=== PATIENT | male | born 1950 | race Caucasian/White ===

== ENCOUNTER 2021-02-21 13:39 | Outpatient (REF) | payer MEDICARE, SELFPAY ==
--- NOTE | ~2021-02-21 | CT_ITS ---
EXAMINATION: CT CHEST SCREENING CLINICAL INFORMATION: Lung cancer screening COMPARISON: Previous chest CT scans most recent November 2019 TECHNIQUE: Multidetector volumetric CT imaging of the chest is performed without contrast using low dose technique. Additional 2D coronal and sagittal reformatted images and axial 3D maximum intensity projection (MIP) images are generated on the CT workstation. This CT examination was performed using dose optimization techniques as appropriate, variously including the following: *Automated exposure control *Adjustment of mA and/or kV according to patient size (this includes techniques or standardized protocols for targeted exams where dose is matched to indication/reason for exam; i.e. extremities or head) *Use of iterative reconstruction technique DLP: 353 mGy-cm FINDINGS: LUNGS: The small calcified and noncalcified pulmonary nodules are stable. Largest noncalcified pulmonary nodule measures 2 x 4 mm in the peripheral or subpleural left upper lobe axial image 212 series 5. There are increased peripheral or subpleural interstitial reticular markings at the lung bases. No endobronchial or endotracheal lesion is seen. MEDIASTINUM: There is coronary artery calcification. There is aortic valve calcification. The mediastinum is normal. PLEURA: There is no pleural effusion. No pleural mass or thickening. AXILLA: No lymphadenopathy. UPPER ABDOMEN: Unremarkable OSSEOUS STRUCTURES: There are degenerative changes of the spine. CT/CT lung screening IMPRESSION: Stable pulmonary nodules. Coronary artery and aortic valve calcification. ASSESSMENT: Lung-RADS category 2: Benign RECOMMENDATION: Annual low-dose chest CT follow-up recommended.
== END 2021-02-21 13:40 | disposition home or self-care (01) ==
LOC: HO.CT 13:39
PROVIDERS: Visit Provider Physician Assistant Medical
DX: Z12.2 Encounter for screening for malignant neoplasm of respiratory organs (principal); F17.210 Nicotine dependence, cigarettes, uncomplicated
CPT/HCPCS: 71271

== ENCOUNTER 2022-05-03 09:51 | Outpatient (REF) | payer MEDICARE, SELFPAY ==
--- NOTE | ~2022-05-03 | CT_ITS ---
EXAMINATION: CT CHEST SCREENING CLINICAL INFORMATION: Nicotine dependence COMPARISON: CT lung screening 02/21/2021 TECHNIQUE: Multidetector volumetric CT imaging of the chest is performed without contrast using low dose technique. Additional 2D coronal and sagittal reformatted images and axial 3D maximum intensity projection (MIP) images are generated on the CT workstation. This CT examination was performed using dose optimization techniques as appropriate, variously including the following: *Automated exposure control *Adjustment of mA and/or kV according to patient size (this includes techniques or standardized protocols for targeted exams where dose is matched to indication/reason for exam; i.e. extremities or head) *Use of iterative reconstruction technique DLP: 94 mGy-cm FINDINGS: LUNGS: There is a 5 mm subpleural nodule left upper lobe anterior segment image 172/5, punctate tumor nodule right lower lobe peripherally based image 260/5. There are punctate scattered calcified nodules which are stable as well. No consolidation, mass or groundglass nodule seen. MEDIASTINUM: The thyroid lobes are symmetric and normal. The central trachea and the bronchi widely patent. Heart size and the great vessels are normal caliber. No abnormal size mediastinal or hilar lymph nodes seen. There are coronary artery and aortic valve atherosclerotic calcification. There is no pericardial effusion. PLEURA: There is no pleural effusion. No pleural mass or thickening. AXILLA: No lymphadenopathy. UPPER ABDOMEN: Visualized liver, spleen, pancreas, gallbladder and adrenal glands unremarkable. No lytic or sclerotic process seen. OSSEOUS STRUCTURES: There is moderate spondylosis upper and mid dorsal spine. No lytic process. CT/CT lung screening IMPRESSION: Stable calcified and noncalcified nodules. No change from the last CT chest exam. ASSESSMENT: Lung-RADS category 2: Benign RECOMMENDATION: Low-dose annual CT chest exam.
== END 2022-05-03 09:52 | disposition home or self-care (01) ==
LOC: HO.CT 09:51
PROVIDERS: PCP Family Medicine; Visit Provider Physician Assistant Medical
DX: Z12.2 Encounter for screening for malignant neoplasm of respiratory organs (principal); F17.210 Nicotine dependence, cigarettes, uncomplicated
CPT/HCPCS: 71271

== ENCOUNTER 2023-05-07 08:36 | Outpatient (REF) | payer MEDICARE, SELFPAY ==
--- NOTE | ~2023-05-07 | CT_ITS ---
EXAMINATION: LUNG CANCER SCREENING CT CHEST WITHOUT CONTRAST CLINICAL INFORMATION: Former smoker with 40 pack year history, quit 2 years ago. COMPARISON: 05/03/2022 TECHNIQUE: Multidetector volumetric CT imaging of the chest was obtained noncontrast using low dose screening CT technique. Axial thin section 0.625 mm reformations in soft tissue and lung windows were obtained. Sagittal and coronal reformations were obtained. Axial MIP images were also created and reviewed. This CT examination was performed using dose optimization techniques as appropriate, variously including the following: *Automated exposure control *Adjustment of mA and/or kV according to patient size (this includes techniques or standardized protocols for targeted exams where dose is matched to indication/reason for exam; i.e. extremities or head) *Use of iterative reconstruction technique TOTAL EXAM DLP: 101.62 mGy-cm FINDINGS: PULMONARY NODULES (see nunez images): No suspicious pulmonary nodules. Unchanged 5 mm subpleural nodule in the anterior segment left upper lobe and 3 mm nodule right lower lobe. There are a few punctate calcified granulomata. LUNGS / PLEURA: Minimal emphysema. Diffuse mild bronchial wall thickening without bronchiectasis. No pleural effusion or pneumothorax. MEDIASTINUM / NIMO: Heart normal in size without pericardial effusion. Great vessels normal caliber. No lymphadenopathy. Coronary calcifications present. Imaged thyroid gland unremarkable. CHEST WALL / AXILLA: Unremarkable. UPPER ABDOMEN: Included portions grossly unremarkable allowing for limitations in technique. OSSEOUS STRUCTURES: No acute or suspicious osseous abnormalities. CT/CT lung screening IMPRESSION: * No evidence of pulmonary malignancy. * Minimal emphysema and chronic airways disease. ASSESSMENT: Lung RADS category: 2. Benign appearance or behavior. Nodules with a very low likelihood of becoming a clinically active cancer due to size or lack of growth. Continue annual screening with low-dose CT in 12 months. Probability of malignancy less than 1%. RECOMMENDATION: Follow up low dose CT chest in 1 year.
== END 2023-05-07 08:37 | disposition home or self-care (01) ==
LOC: HO.CT 08:36
PROVIDERS: PCP Family Medicine; Visit Provider Physician Assistant Medical
DX: Z12.2 Encounter for screening for malignant neoplasm of respiratory organs (principal); F17.210 Nicotine dependence, cigarettes, uncomplicated
CPT/HCPCS: 71271

== ENCOUNTER 2023-08-28 08:08 | Day surgery (SDC) | payer MEDICARE, SELFPAY ==
--- NOTE | 2023-08-24 11:16 | HO.ANESPROP2 ---
Documented by User: Yamileth Cruz NP 08/24/23 11:17 HPI - Anesthesia Eval Consult details Narrative: 73yo M for Colonoscopy [facility] Past Medical History Medical History (Updated 08/28/23 @ 08:46 by Keren Potts RN) Hx of dizziness Hx: UTI (urinary tract infection) Hx of hyperglycemia Pilonidal cyst BPH (benign prostatic hyperplasia) Abnormal colonoscopy Abdominal aortic aneurysm ANALISA on CPAP Depression HTN (hypertension) Hyperlipidemia Diabetes Surgical History Surgical History (Updated 08/28/23 @ 08:42 by Keren Potts RN) Hx of colonoscopy History of abdominal aortic aneurysm (AAA) repair Social History Social History Patient Tobacco Use Status: Former Tobacco user Are you DNR?: No Advance Directives: No Advance Directives Information Provided: Yes Meds Allergies Allergy/AdvReac Type Severity Reaction Status Date / Time No Known Allergies Allergy Unverified 08/05/20 16:18 Home Medications Medication Instructions Recorded Confirmed Last Taken Type ezetimibe 10 mg tablet 10 mg PO DAILY 08/24/23 Unknown History folic acid 1 mg tablet 1 mg PO DAILY 08/24/23 Unknown History glipizide 2.5 mg tablet, extended 10 mg PO DAILY 08/24/23 Unknown History release 24 hr lisinopril 10 mg tablet 10 mg PO DAILY 08/24/23 Unknown History metformin 500 mg tablet,extended 1,000 mg PO BID 08/24/23 Unknown History release 24 hr metoprolol succinate 25 mg 25 mg PO DAILY 08/24/23 Unknown History tablet,extended release 24 hr nitroglycerin 0.4 mg sublingual sublingual 08/24/23 Unknown History tablet pravastatin 40 mg tablet 40 mg PO DAILY 08/24/23 Unknown History sertraline 50 mg tablet 50 mg PO DAILY 08/24/23 Unknown History Aspir-81 81 mg PO DAILY 08/28/23 08/28/23 08/20/23 History Exam Exam Date and Time: August 24, 2023 111 Assessment and Plan Assessment Anesthesia Assessment: Chart Reviewed Documented by User: Aneudydeepa Gardner MD 08/28/23 09:53 [facility] Past Medical History Medical History (Updated 08/28/23 @ 08:46 by Keren Potts, RN) Hx of dizziness Hx: UTI (urinary tract infection) Hx of hyperglycemia Pilonidal cyst BPH (benign prostatic hyperplasia) Abnormal colonoscopy Abdominal aortic aneurysm ANALISA on CPAP Depression HTN (hypertension) Hyperlipidemia Diabetes Family History Family history of problems with anesthesia: No Surgical History Surgical History (Updated 08/28/23 @ 08:42 by Keren Potts, RN) Hx of colonoscopy History of abdominal aortic aneurysm (AAA) repair History of Problems with Anesthesia: No Social History Social History Patient Tobacco Use Status: Former Tobacco user Are you DNR?: No Advance Directives: No Advance Directives Information Provided: Yes Meds Allergies Allergy/AdvReac Type Severity Reaction Status Date / Time No Known Allergies Allergy Unverified 08/05/20 16:18 Home Medications Medication Instructions Recorded Confirmed Last Taken Type ezetimibe 10 mg tablet 10 mg PO DAILY 08/24/23 Unknown History folic acid 1 mg tablet 1 mg PO DAILY 08/24/23 Unknown History glipizide 2.5 mg tablet, extended 10 mg PO DAILY 08/24/23 Unknown History release 24 hr lisinopril 10 mg tablet 10 mg PO DAILY 08/24/23 Unknown History metformin 500 mg tablet,extended 1,000 mg PO BID 08/24/23 Unknown History release 24 hr metoprolol succinate 25 mg 25 mg PO DAILY 08/24/23 Unknown History tablet,extended release 24 hr nitroglycerin 0.4 mg sublingual sublingual 08/24/23 Unknown History tablet pravastatin 40 mg tablet 40 mg PO DAILY 08/24/23 Unknown History sertraline 50 mg tablet 50 mg PO DAILY 08/24/23 Unknown History Aspir-81 81 mg PO DAILY 08/28/23 08/28/23 08/20/23 History Exam Airway Mallampati Class: III TM Dist: >3cm Neck ROM: Full Loose/Missing/Broken Teeth: Yes Assessment and Plan Assessment Anesthesia Assessment: Anesthesia Plan Discussed Final Anesthetic Review Family History of Problems with Anesthesia: No History of Problems with Anesthesia: No ASA Class: III Final Preanesthetic Review: No Changes in Pt Med Stat, Meds/Allgs Chart Reviewed, Consent Obtained/Reviewed and Anes Risks/Benef Reviewed Patient Risk: Intermediate Procedure Risk: Low Anesthetic Plan Disposition: Standard PACU
[2023-08-28 08:17] VITALS: BP 142/58; PULSE 76; RESP 18; TEMP 36; O2SAT 95
[2023-08-28 08:33] VITALS: BMI 33.7
--- NOTE | 2023-08-28 09:47 | MHC.SHP ---
Pre-Procedural Eval Section A Date of Service: 08/28/23 Section B Chief Complaint: screening Details of Present Illness: see H&P no changes Relevant Family History (Specify if Yes): No Relevant Social History: None Present Medications: see Short Stay Collaborative assessment Medical History: No relevant PMH History of Previous Operations: No relevant previous surgery Allergies: Allergies Allergy/AdvReac Type Severity Reaction Status Date / Time No Known Allergies Allergy Unverified 08/05/20 16:18 Review of Systems Sugical H&P ROS: Negative: Constitution, Cardiovascular, Respiratory, Neurological, Psychiatric, Hem-Onc, Allergic/Immunologic, Gastrointestinal, Genitourinary, Musculoskeletal, Integumentary, Endocrine and Eyes/Ears/Nose/Throat Exam Surgical H&P Exam: Normal: HEENT, Normal: Heart, Normal: Lungs, Normal: Extremities, Normal: Abdomen, Normal: Skin and Normal: Neurological Plan Diagnosis/Plan: Unchanged I have reviewed the history and physical and performed a pertinent physical examination on my patient. No changes have occurred unless specified. Time Spent With Patient Time: Total time managing care of this patient today ____ minutes.
--- NOTE | 2023-08-28 10:14 | PM.OP ---
Brief Operative Note Date of Service: 08/28/23 Surgeon: Roc Barboza MD Anesthesia: MAC Was an Food And Beverage Checker used for this Procedure?: No Estimated blood loss (mL): 2 Pathology: other Condition: stable Disposition: PACU
[2023-08-28 10:20] VITALS: BP 115/60; PULSE 75; RESP 20; TEMP 36.3; O2SAT 96
[2023-08-28 10:35] VITALS: BP 123/74; PULSE 64; RESP 20; TEMP 36.2; O2SAT 97
== END 2023-08-28 11:12 | disposition home or self-care (01) ==
PROVIDERS: PCP Family Medicine; Visit Provider Internal Medicine Gastroenterology
PROC: 0DJD8ZZ Inspection of Lower Intestinal Tract, Via Natural or Artificial Opening Endoscopic (ICD-10-PCS; CPT 45378; principal; 2023-08-28 09:30)
DX: Z12.11 Encounter for screening for malignant neoplasm of colon (principal); Z86.010 Personal history of colon polyps; K63.5 Polyp of colon; K59.01 Slow transit constipation; I10 Essential (primary) hypertension; E78.5 Hyperlipidemia, unspecified; E11.9 Type 2 diabetes mellitus without complications; G47.33 Obstructive sleep apnea (adult) (pediatric); I71.40 Abdominal aortic aneurysm, without rupture, unspecified; Z79.84 Long term (current) use of oral hypoglycemic drugs; Z79.899 Other long term (current) drug therapy; Z99.89 Dependence on other enabling machines and devices; Z98.890 Other specified postprocedural states
CPT/HCPCS: 45380; 82947; 88305

== ENCOUNTER 2024-11-13 13:02 | Outpatient (REF) | payer MEDICARE, SELFPAY ==
--- OUTSIDE RECORDS SUMMARY | 2024-11-13 13:04 | XMS_ITS ---
Author Organization [facility] Address [address] [place] [phone] Care Team Providers Care Gericare Aide Teacher Name Role Phone Reji Hernandez MD Primary Care Provider Roc Chacon Jr Unavailable ALLERGIES No Known Allergies REASON FOR VISIT Patient presents today for colonoscopy screening recall. MEDICATIONS Medication SIG (Take, Route, Frequency, Duration) Notes Start Date End Date Status MiraLax (colon prep) 17 GM/SCOOP mixed with Gatorade or Crystal Light Orally begin at 5:00 p.m. the day before the procedure for 1 day 07/16/2023 Active metFORMIN HCl 500 MG 2 tablet with meals Orally Twice a day Active Pravastatin Sodium 40 MG TAKE 1 TABLET B Y MOUTH ONCE DAILY Oral for 90 Active Metoprolol Succinate ER 25 MG Oral for 90 Active Ezetimibe 10 MG TAKE 1 TABLET BY DAVID TH ONCE DAILY Oral for 90 Active Lisinopril 5 MG 1 tablet Orally Once a day Active glipiZIDE ER 2.5 MG 1 tablet Orally Once a day Active Sertraline HCl 100 MG 1 tablet Orally On ce a day Active Simvastatin 80 MG 1 tablet in the even ing Orally Once a day Active SOCIAL HISTORY Tobacco Use: Social History Observation Description Date Details (start date - stop date) Former Smoker NA - NA Sex Assigned At : Social History Observation Description Sex Assigned At Unknown Tobacco Use/Smoking Question Answer Notes Patient is a former smoker Alcohol Screen Question Answer Notes Did you have a drink contain ing alcohol in the past year? Yes How often did you have a dri nk containing alcohol in the past year? Monthly or less (1 point) How many drinks did you have on a typical day when you were drinking in the past year? 1 or 2 drinks (0 point) How often did you have 6 or more drinks on one occasion in the past year? 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 (Z79.84) Active confirmed 473764916266033 Problem Slow transit constipation (K59.01) Active confirmed 23367111 VITAL SIGNS BMI 32.52 kg/m2 07/16/2023 Blood pressure systolic 000 mm Hg 07/16/20 23 Blood pressure diastolic 00 mm Hg 023 Height 71 in 07/16/2023 Temperature 97.8 degrees Fahrenheit 07/16/20 23 Weight 233.2 lbs 07/16/2023 Encounters Encounter Location Date Provider Diagnosis [facility] [address] [place] [address] 07/16/2023 Roc Barboza Jr Colon cancer screening Z12.11 ; Long-term use of aspirin therapy Z79.82 ; termite inspector (current) use of oral hypoglycemic drugs Z79.84 and Slow transit constipation K59.01 ASSESSMENTS Encounter Date Diagnosis Assessment Notes Treatment Notes Treatment Clinical Notes 07/16/2023 Colon cancer screening (ICD-10 - Z12.11) Colonoscopy material was printed 07/16/2023 Long-term use of aspirin therapy (ICD-10 - Z79.82) 07/16/2023 termite inspector (current) use of oral hypoglycemic drugs (ICD-10 - Z79.84) 07/16/2023 Slow transit constipation (ICD-10 - K59.01) PLAN OF TREATMENT Medication Medication Name Sig Start Date Stop Date Notes MiraLax (colon prep) 17 GM/SCOOP mixed with Gatorade or Crystal Light Orally begin at 5:00 p.m. the day before the procedure for 1 day 07/16/2023 Treatment Notes Assessment Notes Colon cancer screening Colonoscopy mater ial was printed Future Test Test Name Order Date COLONOSCOPY 07/16/2023 Next Appt Details Follow Up: prn, Reason: Progress Notes * Examination Category Sub-Category Detail Notes General Examination GENERAL APPEARANCE: in no ac marisel distress HEAD: normocephalic EYES: sclera non-icteric NECK/THYROID: no lymphadenopathy HEART: S1, S2 normal, no mu rmurs CHEST: normal shape and exp ansion LUNGS: clear to auscultatio n bilaterally ABDOMEN: soft, nontender, non distended, bowel sounds present, no organomegaly SKIN: anicteric EXTREMITIES: no clubbing, cyanosi s, or edema PSYCH: cognitive function i ntact ORAL CAVITY: mucosa moist
--- OUTSIDE RECORDS SUMMARY | 2024-11-13 13:04 | XMS_ITS ---
Author Organization [facility] Address [address] [place] [phone] Care Team Providers Care Software Configuration Specialist Name Role Phone Reji Hernandez MD Primary Care Provider Unavaila Roc Degroot Jr Unavailable REASON FOR VISIT screening Encounters Encounter Location Date Provider Diagnosis [facility] Outpatient [address] [place] [phone] 08/28/2023 Roc Barboza Jr Encounter for screening colonoscopy Z12.11 and Colon polyps K63.5 ASSESSMENTS Encounter Date Diagnosis Assessment Notes Treatment Notes Treatment Clinical Notes 08/28/2023 Encounter for screening colonoscopy (ICD-10 - Z12.11) 08/28/2023 Colon polyps (ICD-10 - K63.5) PLAN OF TREATMENT No Information
--- OUTSIDE RECORDS SUMMARY | 2024-11-13 13:05 | XMS_ITS | Patient Health Record ---
Author Organization [facility] Address [address] [place] [phone] Care Team Providers Care Front End Driver Name Role Phone Reji Hernandez MD Primary Care Provider Roc Chacon Jr Unavailable ALLERGIES No Known Allergies REASON FOR REFERRAL No Information MEDICATIONS Medication SIG (Take, Route, Frequency, Duration) Notes Start Date End Date Status MiraLax (colon prep) 17 GM/SCOOP mixed with Gatorade or Crystal Light Orally begin at 5:00 p.m. the day before the procedure for 1 day 07/16/2023 Active Lisinopril 5 MG 1 tablet Orally Once a day Active glipiZIDE ER 2.5 MG 1 tablet Orally Once a day Active Sertraline HCl 100 MG 1 tablet Orally On ce a day Active Simvastatin 80 MG 1 tablet in the even ing Orally Once a day Active metFORMIN HCl 500 MG 2 tablet with meals Orally Twice a day Active Pravastatin Sodium 40 MG TAKE 1 TABLET B Y MOUTH ONCE DAILY Oral for 90 Active Metoprolol Succinate ER 25 MG Oral for 90 Active Ezetimibe 10 MG TAKE 1 TABLET BY DAVID TH ONCE DAILY Oral for 90 Active IMMUNIZATIONS Vaccine Route Administration Date Status Comme nts Influenza Unknown 10/10/2022 Administered SOCIAL HISTORY Tobacco Use: Social History Observation [...] W/U Status Risk SNOMED Code Notes Problem Colon cancer screening (Z12.11) Active confirmed 831596596 Problem Long-term current use of high risk medication other than anticoagulant (Z79.899) Active confirmed 609865914 Problem Long-term use of aspirin therapy (Z79.82) Active confirmed 545438253 Problem care home (current) use of oral hypoglycemic drugs (Z79.84) Active confirmed 829232284961720 Problem Slow transit constipation (K59.01) Active confirmed 91611361 PLAN OF TREATMENT Future Test Test Name Order Date COLONOSCOPY 12/19/2017 COLONOSCOPY 07/16/2023 Insurance Providers Payer Name Payer Address Payer Phone Subscriber Number Group Number Insured Name Patient Relationship to Insured Coverage Start Date Coverage End Date [employer] [address] [place] [phone] [id number] ABDOUL FULLER Self - patient is the insured MEDICAL (GENERAL) HISTORY Medical History History ICD Code diabetes mellitus hyperlipidemia hypertension depression ANALISA/CPAP Abdominal aortic aneurysm Colonoscopy 03/06, tubular adenoma, five- year followup BPH Surgical History Surgery Date(Month/Year) pilonidal cyst excision Endovascular abdominal aortic aneurysm r epair
== END 2024-11-13 13:03 | disposition home or self-care (01) ==
LOC: HO.CT 13:02
PROVIDERS: Visit Provider Physician Assistant Medical
DX: Z12.2 Encounter for screening for malignant neoplasm of respiratory organs (principal); Z87.891 Personal history of nicotine dependence
CPT/HCPCS: 71271

== ENCOUNTER → 2024-11-13 13:04 | Outpatient (BNV) | payer MEDICARE, SELFPAY | PROVIDERS: Visit Provider Radiology Diagnostic Radiology | DX: Z72.0 Tobacco use (principal) | CPT/HCPCS: 71271 ==

== ENCOUNTER 2025-11-16 08:50 | Outpatient (REF) | payer MEDICARE, SELFPAY ==
--- NOTE | ~2025-11-16 | CT_ITS ---
EXAMINATION: CT LUNG SCREENING HISTORY: Z87.891 - Personal history of nicotine dependence TECHNIQUE: Low dose axial images were obtained from the sternal notch to upper abdomen without IV contrast per standard departmental protocol. Sagittal and coronal reformatted images were also obtained and reviewed. One or more of the following techniques was used for dose reduction: Automated exposure control, adjustment of the mA and/or kV according to patient size, use of iterative reconstruction technique. DLP: 91 mGy-cm COMPARISON: There are no prior studies available for comparison. FINDINGS: Lung nodules: There is a 5 mm subpleural nodule in the left upper lobe (series 5, image 70) without change. There is a punctate calcified granuloma in the left upper lobe (series 5, image 65). No new pulmonary nodules are identified. Emphysema: none Coronary Calcification: mild Aortic Arch Calcification: mild Potentially Significant Incidentals : none Additional Chest Findings: There is no pleural or pericardial effusion. No mediastinal or axillary lymphadenopathy is identified. Visualized upper abdomen: The visualized portions of the liver, spleen, and adrenals have an unremarkable unenhanced appearance. An upper abdominal stent graft is noted. There is likely a distal aortic aneurysm which is incompletely imaged. CT/CT lung screening IMPRESSION: No suspicious pulmonary nodules are identified. LUNG-RADS ASSESSMENT: Lung-RADS 2: Benign MANAGEMENT: Continue annual screening with LDCT in 12 months Category S: N/A Electronically signed by: Moshe Middleton MD 11/16/2025 10:15 AM [facility]
--- OUTSIDE RECORDS SUMMARY | 2025-11-16 08:55 | XMS_ITS | Encounter Summary ---
Author Organization [facility] Address [address] [place] [address] Phone Care Team Providers Care Taxation Consultant Name Role Phone Chidi Lopez MD Primary Care Provide r Encounter Details Date Type Department Care Team (Late st Contact Info) Description 11/03/2024 Documentation Only [facility] [address] [place] [address] Nadia Booth [address] [place] [phone] Social History Tobacco Use Types Packs/Day Years Used Date Smoking Tobacco: Never Assessed Sex and Gender Information Value Date Recorded Sex Assigned at Not on file Legal Sex Male 1:37 PM EST Gender Identity Not on file Sexual Orientation Not on file documented as of this encounter Plan of Treatment Upcoming Encounters Date Type Department Care Team (Late st Contact Info) Description 11/03/2026 2:00 PM EST Office Visit [facility] [address] [place] [address] Kee Cueva MD [address] [place] [address] [place] [address] documented as of this encounter Visit Diagnoses Not on filedocumented in this encounter Care Teams Taxation Consultant Relationship Specialty Start Date End Date Chidi Lopez MD [address] [place] [address] [phone] PCP - General Internal Medicine 11/02/25 documented as of this encounter
--- OUTSIDE RECORDS SUMMARY | 2025-11-16 08:55 | XMS_ITS | Encounter Summary ---
Author Organization [facility] Address [address] [place] [address] Phone Care Team Providers Care Rfid Developer Name Role Phone Chidi Lopez MD Primary Care Provide r Encounter Details Date Type Department Care Team (Late st Contact Info) Description 10/09/2023 Documentation Only [facility] [address] [place] [address] Reji Hernandez P, DO [address] [place] [address] Social History Tobacco Use Types Packs/Day Years [...] Visit [facility] [address] [place] [place] [phone] Kee Cueva MD [address] [place] [address] [place] [phone] documented as of this encounter Visit Diagnoses Not on filedocumented in this encounter Care Teams Rfid Developer Relationship Specialty Start Date End Date Chidi Lopez MD [address] [place] [address] [phone] PCP - General Internal Medicine 11/02/25 documented as of this encounter
--- OUTSIDE RECORDS SUMMARY | 2025-11-16 08:55 | XMS_ITS | Clinical Summary ---
Author Organization [facility] Prior to 04/18/25 Address [address] [place] [address] Care Team Providers Care Electrotype Molder Name Role Phone Reji Hernandez MD Primary Care Provider [phone] Allergies No known active allergies Medications Medication Sig Dispensed Refills Start Date End Date Status metFORMIN (GLUCOPHAGE) tablet 500 mg Take 1 tablet (500 mg total) by mouth 2 (two) times a day with meals. 0 Active sertraline (ZOLOFT) 50 MG tablet Take 1 tablet (50 mg total) by mouth daily. 0 Active lisinopril (PRINIVIL,ZESTRIL) tablet 10 mg Take 1 tablet (10 mg total) by mouth daily. 0 Active glipiZIDE (GLUCOTROL XL) ER 24 hr tablet 2.5 mg Take 1 tablet (2.5 mg total) by mouth daily. 0 Active pravastatin (PRAVACHOL) tablet 40 mg Take 1 tablet (40 mg total) by mouth daily. 0 Active ezetimibe (ZETIA) tablet 10 mg Take 1 tablet (10 mg total) by mouth daily. 0 Active aspirin EC 81 MG tablet Take 1 tablet (81 mg total) by mouth daily. 0 Active nitroglycerin (NITROSTAT) 0.[address] 1 tablet (0.4 mg total) under the tongue every 5 (five) minutes as needed for chest pain. 0 Active Active Problems No known active problems Social History Tobacco Use Types Packs/Day Years Used Date Smoking Tobacco: Former Cigarettes Smokeless Tobacco: Never Tobacco Cessation:Counseling Given: Not Answered Alcohol Use Standard Drinks/Week Comments Not Currently 0 (1 standard drink = 0.6 oz pur e alcohol) Sex and Gender Information Value Date Recorded Sex Assigned at Male 09/20/2023 10:50 AM EDT Gender Identity Not on file Sexual Orientation Not on file Job Start Date Occupation Industry Not on file Not on file Not on file Last Filed Vital Signs Vital Sign Reading Time Taken Comments Blood Pressure 131/68 12/05/2023 11:42 AM EST Pulse 65 12/05/2023 11:42 AM EST Temperature 36.3 C (97.4 F) 12/05/2023 11:42 AM EST Respiratory Rate - - Oxygen Saturation 98% 12/05/2023 11:42 AM EST Inhaled Oxygen Concentration - - Weight 107 kg (236 lb) 12/05/2023 11:42 AM EST Height - - Body Mass Index - - Plan of Treatment Health Maintenance Due Date Last Done Comments Hepatitis C Screening 1950 Depression Screening 1962 Preventative Health Evaluation 1968 DTap / Tdap / Td (1 - Tdap) 1969 Colon Cancer Screening (Colonoscopy) 1995 Shingrix-Zoster Vaccine (1 of 2) 2000 Fall Risk Assessment 2015 Pneumococcal Vaccine (2 of 2 - PCV) 01/24/2020 01/23/2019 RSV Adult > 60+ Yrs or Pregn ant (1 - 1-dose 75+ series) 2025 COVID-19 Vaccine (2 - 2024-2 6 season) 2025 02/27/2021 Influenza Vaccine (#1) 2025 Hepatitis B Vaccines Aged Out No long er eligible based on patient's age to complete this topic RSV Ped < 20 months Aged Out No longe r eligible based on patient's age to complete this topic Care Teams Electrotype Molder Relationship Specialty Start Date End Date Reji Hernandez MD [address] [place] [address] PCP - General Family Medicine 09/20/23
--- OUTSIDE RECORDS SUMMARY | 2025-11-16 08:55 | XMS_ITS | Patient Health Record ---
Author Organization [facility] Address [address] [place] [phone] Care Team Providers Care Continuous Process Coffee Roaster Name Role Phone Reji Hernandez MD Primary Care Provider Roc Chacon Jr Unavailable Allergies No Known Allergies Reason For Referral No Information Medications Medication SIG (Take, Route, Frequency, Duration) Notes Start Date End Date Status MiraLax (colon prep) 17 GM/SCOOP Powder mixed with Gatorade or Crystal Light Orally begin at 5:00 p.m. the day before the procedure; Duration: 1 day 07/16/2023 Active Lisinopril 5 MG Tablet 1 tablet Orally O nce a day Active glipiZIDE ER 2.5 MG Tablet Extended Release 24 Hour 1 tablet Orally Once a day Active Sertraline HCl 100 MG Tablet 1 tablet Orally Once a day Active Simvastatin 80 MG Tablet 1 tablet in the evening Orally Once a day Active metFORMIN HCl 500 MG Tablet 2 tablet wit h meals Orally Twice a day Active Pravastatin Sodium 40 MG Tablet TAKE 1 TABLET BY MOUTH ONCE DAILY Oral; Duration: 90 Active Metoprolol Succinate ER 25 MG Tablet Extended Release 24 Hour Oral; Duration: 90 Active Ezetimibe 10 MG Tablet TAKE 1 TABLET BY MOUTH ONCE DAILY Oral; Duration: 90 Active Immunizations Vaccine Route Administration Date Status Comme nts Influenza Unknown 10/10/2022 Administered Social History Tobacco Use: Social History Observation Description Date Details (start date - stop date) Former Smoker NA - NA Social History Drugs/Alcohol: Social Info Question Answer Notes Alcohol Screen Did you have a drink containing alcohol in the past year? Yes How often did you have a drink containing alcohol in the past year? Monthly or less (1 point) How many drinks did you have on a typical day when you were drinking in the past year? 1 or 2 drinks (0 point) How often did you have 6 or more drinks on one occasion in the past year? Never (0 point) Points 1 Interpretation Negative Tobacco Use: Social Info Question Answer Notes Tobacco Use/Smoking Patient is a former smoker Additional Details Category Social Info Options Details Miscellaneous: Marital status: Occupation: seasonal at the [employer] Problems Problem Type SNOMED Code ICD Code Onset Dates Problem Status W/U Status Risk Notes Problem Colon cancer screening (276190647) Colon cancer screening (Z12.11) Active confirmed Problem Slow transit constipation (08256254) Slow transit constipation (K59.01) Active confirmed Problem Long-term current use of antiplatelet drug (172264901447267 ) Long-term use of aspirin therapy (Z79.82) Active confirmed Problem Long-term current use of drug therapy (831217144) Long-term current use of high risk medication other than anticoagulant (Z79.899) Active confirmed Problem Long-term current use of drug therapy (607154469) nursing home (current) use of oral hypoglycemic drugs (Z79.84) Active confirmed Plan Of Treatment Future Test Test Name Order Date COLONOSCOPY 12/19/2017 COLONOSCOPY 07/16/2023 Insurance Providers Payer Name Payer Address Payer Phone Subscriber Number Group Number Insured Name Patient Relationship to Insured Coverage Start Date Coverage End Date [employer] [address] [facility] [phone] [id number] ABDOUL FULLER Self - patient is the insured Medical (General) History Medical History History ICD Code diabetes mellitus hyperlipidemia hypertension depression ANALISA/CPAP Abdominal aortic aneurysm Colonoscopy 03/06, tubular adenoma, five- year followup BPH Surgical History Surgery Date(Month/Year) pilonidal cyst excision Endovascular abdominal aortic aneurysm r epair
--- OUTSIDE RECORDS SUMMARY | 2025-11-16 08:55 | XMS_ITS | Encounter Summary ---
Author Organization [facility] Address [address] [place] [address] Phone Care Team Providers Care Medical Certification Specialist Name Role Phone Chidi Lopez MD Primary Care Provide r Encounter Details Date Type Department Care Team (Late st Contact Info) Description 11/03/2024 Documentation Only [facility] [address] [place] [address] Nadia Booth [address] [place] [phone] Social History Tobacco Use Types Packs/Day Years [...] Visit [facility] [address] [place] [address] Kee Cueva MD [address] [place] [address] [place] [address] documented as of this encounter Visit Diagnoses Not on filedocumented in this encounter Care Teams Medical Certification Specialist Relationship Specialty Start Date End Date Chidi Lopez MD [address] [place] [address] [phone] PCP - General Internal Medicine 11/02/25 documented as of this encounter
--- OUTSIDE RECORDS SUMMARY | 2025-11-16 08:56 | XMS_ITS | Patient Health Record ---
Author Organization [facility] Address [address] [place] [address] Care Team Providers Care Mobile Designer Name Role Phone CHOE DO, NILDA Primary Care Provider TERRENCE Castellon Unavailable [phone] Allergies No Known Allergies Reason For Referral No Information Medications Medication SIG (Take, Route, Frequency, Duration) Notes Start Date End Date Status Aspirin EC 81 MG Tablet Delayed Release 1 tab(s) orally once a day Active Pravastatin Sodium 40 MG Tablet 1 tablet Orally Once a day Active OneTouch Verio Flex System w/Device Kit as directed 09/10/2022 Active Metoprolol Succinate 25 MG Capsule ER 24 Hour Sprinkle 1 capsule Orally Once a day unsure of dosing Active OneTouch Delica Plus Lyclby80E - Miscellaneous USE 1 LANCET TO CHECK GLUCOSE ONCE DAILY; Duration: 90 Active OneTouch Verio - Strip USE 1 STRIP TO CHECK GLUCOSE ONCE DAILY; Duration: 90 Active Lisinopril 10 MG Tablet 1 tab(s) orally once a day; Duration: 30 day(s) Active metFORMIN HCl ER 500 MG Tablet Extended Release 24 Hour 2 tabs orally 2 times a day Active Sertraline HCl 50 MG Tablet 1 tab(s) orally once a day; Duration: 30 day(s) Active glipiZIDE ER 2.5 MG Tablet Extended Release 24 Hour 2 tab(s) orally once a day Active CPAP 7 CM QHS *Please review f or potential replacement for e-prescription and drug interaction check* Active CPAP SUPPLIES QHS; Duration: LIFETIME *Please review for potential replacement for e-prescription and drug interaction check* Active Social History Tobacco Use: Social History Observation Description Date Details (start date - stop date) Former Smoker NA - NA Social History Tobacco Use: Social Info Question Answer Notes Smoking Are you a: former smoker Additional Details Category Social Info Options Details General 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 exposure: no Past year's travels: none alcohol use: yes socially drug use: no Coffee/Tea/Soda: yes Coffee 2 cups a day Marital Status experience yes [employer] Living with smokers in household no Problems Problem Type SNOMED Code ICD Code Onset Dates Problem Status W/U Status Risk Notes Problem Diabetic peripheral neuropathy associated with type 2 diabetes mellitus (3496989646788) 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) Active confirmed Problem Type 2 diabetes mellitus (00719654) Type 2 diabetes mellitus (E11.9) Active confirmed Plan Of Treatment Pending Test Test Name Order Date Urine Microalbumin(Creat/MALB Ratio) AST ( SGOT) 10/11/2021 ALT(DO NOT USE) 10/11/2021 AST ( SGOT) 01/26/2022 ALT(DO NOT USE) 01/26/2022 Future Test Test Name Order Date LIPID PROFILE 11/22/2020 GLYCOHEMOGLOBIN (HBA1C) 11/22/2020 AST ( SGOT) 11/22/2020 Urine Microalbumin(Creat/MALB Ratio) 02/2021 ALT(DO NOT USE) 11/22/2020 BASIC METABOLIC PANEL 11/22/2020 Insurance Providers Payer Name Payer Address Payer Phone Subscriber Number Group Number Insured Name Patient Relationship to Insured Coverage Start Date Coverage End Date [employer] PREF[employer]ED [address] [place] [id number] ABDOUL FULLER Self - patient is the insured Medical (General) History Medical History History ICD Code hyperlipidemia depression headache type 2 diabetes - dx early angina Surgical History Surgery Date(Month/Year) AAA Repair 09/16/2021 cyst removal-lower back Hospitalization History Reason Date(Month/Year) for AAA 08/2021 tightness in chest 01/2022
--- OUTSIDE RECORDS SUMMARY | 2025-11-16 08:56 | XMS_ITS | Clinical Summary ---
Author Organization [facility] Address [address] [place] [address] [place] [address] Phone Care Team Providers Care End Touching Machine Operator Name Role Phone Chidi Lopez MD Primary Care Provide r Allergies Active Allergy Reactions Criticality Noted Date Comments Other 10/29/2023 Other reaction(s): Seasonal Medications aspirin 81 MG chewable tablet Chew 81 mg in the morning. 09/17/2021 Active ezetimibe (ZETIA) 10 MG tablet Take 10 mg by mouth 1 (one) time each day 10/22/2023 Active folic acid (FOLVITE) 1 MG tablet Take 1,000 mcg by mouth 1 (one) time each day 08/15/2023 Active glipiZIDE (GLUCOTROL XL) 2.5 MG 24 hr tablet Take 10 mg by mouth 1 (one) time each day 08/08/2023 Active lisinopril 10 MG tablet Take 10 mg by mouth 1 (one) time each day 10/24/2023 Active metFORMIN XR (GLUCOPHAGE-XR) 500 MG 24 hr tablet Take 1,000 mg by mouth in the morning and 1,000 mg in the evening. 10/22/2023 Active metoprolol succinate XL (TOPROL XL) 25 MG 24 hr tablet Take 25 mg by mouth 1 (one) time each day 08/07/2023 Active nitroglycerin (NITROSTAT) 0.4 MG SL tablet 08/22/2023 Active pravastatin (PRAVACHOL) 40 MG tablet Take 40 mg by mouth 1 (one) time each day 09/27/2023 Active sertraline (ZOLOFT) 50 MG tablet Take 50 mg by mouth 1 (one) time each day 09/14/2023 Active metoprolol tartrate 25 MG tablet Take 25 mg by mouth in the morning and 25 mg in the evening. Active atorvastatin (LIPITOR) 40 MG tablet Take 40 mg by mouth 1 (one) time each day Active SITagliptin (JANUVIA) 100 MG tablet Take 100 mg by mouth 1 (one) time each day Active Active Problems Problem Noted Date Diagnosed Date Vitamin D deficiency 11/02/2025 Hypertension 10/29/2023 10/29/2023 Overview (10/29/2023): Last Assessment & Plan: BP well controlled on rx, including an missy-inhibitor. Type 2 diabetes mellitus 01/31/2023 023 Overview (10/29/2023): Last Assessment & Plan: Control has been suboptimal. No frequent or severe hypoglycemia. Discussed options to improve control with risks/benefits. The GLP1 agonists are expensive. It is unlikely that more glipizide will provide adequate control. He is willing to start insulin. Continue to work on eating healthy & keeping active. To call or send in BG with problems with glycemic control. Will do labs. To call if hasn't heard from us within 1-2 weeks. Due for ophtho. Foot & nail care good. Encounters Date Type Department Care Team Description 11/02/2025 1:30 PM EST Office Visit [facility] [address] [place] [address] Kee Cueva MD Stage 3a chronic kidney disease (HCC) (Primary Dx) from Last 3 Months Immunizations Immunization Administration Dates Next Due Theo SARS-COV-2 02/27/2021 Moderna SARS-COV-2 02/27/2022,10/29/2021 Pneumococcal Polysaccharide 01/23/2019 Social History Tobacco Use Types Packs/Day Years Used Date Smoking Tobacco: Never Assessed Sex and Gender Information Value Date Recorded Sex Assigned at Not on file Legal Sex Male 1:37 PM EST Gender Identity Not on file Sexual Orientation Not on file Plan of Treatment Upcoming Encounters Date Type Department Care Team (Late st Contact Info) Description 11/03/2026 2:00 PM EST Office Visit [facility], [address] [facility] [place] [address] Kee Cueva MD [address] [facility] [place] [phone] Health Maintenance Due Date Last Done Comments Colorectal Cancer Screening: Annual FOBT 1999 Colorectal Cancer Screening: Colonoscopy 1999 Colorectal Cancer Screening: Sigmoidoscopy 1999 Pneumococcal Vaccine: 50+ Ye ars (2 of 2 - PCV) 01/24/2020 01/23/2019 Diabetes: Hemoglobin A1C 10/22/2023 Diabetes: Ophthalmology Exam 10/22/2023 Diabetes: Pedal Pulse Checked 10/22/2023 Diabetes: Sensory Foot Exam 10/22/2023 Diabetes: Visual Foot Exam 10/22/2023 Influenza Vaccine (#1) 2025 Hepatitis B Vaccine Aged Out No longe r eligible based on patient's age to complete this topic Insurance [employer] Care Teams End Touching Machine Operator Relationship Specialty Start Date End Date Chidi Lopez MD [address] [place] [id number] PCP - General Internal Medicine 11/02/25
== END 2025-11-16 08:51 | disposition home or self-care (01) ==
LOC: HO.CT 08:50
PROVIDERS: Visit Provider Physician Assistant Medical
DX: Z87.891 Personal history of nicotine dependence (principal)
CPT/HCPCS: 71271

== ENCOUNTER → 2025-11-16 08:51 | Outpatient (BNV) | payer MEDICARE, SELFPAY | PROVIDERS: Visit Provider Radiology Diagnostic Radiology | DX: Z87.891 Personal history of nicotine dependence (principal) | CPT/HCPCS: 71271 ==